=== PATIENT | female | born 1960 | race Hispanic/Latino ===

== ENCOUNTER 2024-04-17 18:26 | Emergency (ER) | payer OTHER ==
--- OUTSIDE RECORDS SUMMARY | 2024-04-17 18:29 | XMS REPORT | Continuity of Care Document ---
Author Name Unknown Address [address] [facility] [address] thconnect Address [address] [facility] [address] [place] [address] Care Team Providers Care White Lead Grinder Name Role Phone JUAN RIVERA Primary Care Physician TIANA Moulton Attending Clinician Unavail able Juan Manzano Attending Clinician JUAN RIVERA Attending Clinician Unavailab le Doctor Unassigned, [place] Attending Clinician U Jethro Cullen Attending Clinician + TY MULLINS Attending Clinician Unavailable JETHRO CANCINO Attending Clinician Unavail able Payers Payer Name Policy Type Policy Number Effective Date Expirati on Date Source Problems Condition Name Condition Details Condition Category Status Onset Date Resolution Date Last Treatment Date Treating Clinician Comments Source Encounter for surveillan ce of contracept villa, unspecifie d contracept cassandra Encounter for surveillan ce of contracept villa, unspecifie d contracept cassandra Disease Active 03-23 00:00: 00 [facility] Urinary frequency Urinary frequency Disease Active 03-22 00:00: 00 [facility] Vaginal itching Vaginal itching Disease Active 03-22 00:00: 00 [facility] Encounter for contracept cassandra management , unspecifie d type Encounter for contracept cassandra management , unspecifie d type Disease Active 2017-10 00:00: 00 [facility] Menopausal state Menopausal state Disease Active 2017-10 00:00: 00 [facility] Body aches Body aches Disease Active 2016-10 00:00: 00 [facility] Post-menop ausal Post-menop ausal Disease Active 07-11 00:00: 00 [facility] Screen for STD (sexually transmitte d disease) Screen for STD (sexually transmitte d disease) Disease Active 07-11 00:00: 00 [facility] Menopause Menopause Disease Active 07-11 00:00: 00 [facility] UTI symptoms UTI symptoms Disease Active 07-11 00:00: 00 [facility] Allergies, Adverse Reactions, Alerts Allergy Name Allergy Type Status Severity Reaction(s) Onset Date Inactive Date Treating Clinician Comments Source NO KNOWN ALLERGIE S Drug Class Active [facility] Social History Social Habit Start Date Stop Date Quantity Comments Source Alcohol intake 2021-03-23 00:00:00 2021-03-23 00:00:00 Current non-drinker of alcohol (finding) [facility] Tobacco use and exposure 2021-03-23 00:00:00 2021-03-23 00:00:00 Never used [facility] Sex Assigned At 1960 00:00:00 1960 00:00:00 [facility] Smoking Status Start Date Stop Date Source Never smoker [facility] Medications Ordered Medication Name Filled Medication Name Start Date Stop Date Current Medication? Ordering Clinician Indication Dosage Frequency Signature (SIG) Comments Components Source Nitrofurant oin&Nit. Macrocryst 100 mg capsule 03-19 00:00: 00 Yes 100mg Take 100 mg by mouth 2 (two) times daily. [facility] metroNIDAZO LE 500 mg tablet 11-25 00:00: 00 03-23 00:00 :00 No [id number] 500mg Take 1 tablet by mouth 2 (two) times daily. [facility] cyclobenzap rine 10 mg tablet 2016-10 00:00: 00 03-23 00:00 :00 No [id number] 10mg Take 1 tablet by mouth 3 (three) times daily. prn [facility] Vital Signs Vital Name Observation Time Observation Value Comments Kevin powers Systolic blood pressure 2021-03-22 21:08:00 137 mm[Hg] [facility] Diastolic blood pressure 2021-03-22 21:08:00 81 mm[Hg] [facility] Heart rate 2021-03-22 21:08:00 71 [facility] temperature 2021-03-22 21:08:00 36.28 Diana [facility] Respiratory rate 2021-03-22 21:08:00 18 /min [facility] Body height 2021-03-22 21:08:[address] [facility] Body weight 2021-03-22 21:08:[address] [facility] BMI 2021-03-22 21:08:00 24.82 kg/m2 [facility] Systolic blood pressure 2019-11-25 22:37:00 107 mm[Hg] [facility] Diastolic blood pressure 2019-11-25 22:37:00 63 mm[Hg] [facility] Heart rate 2019-11-25 22:37:00 68 /min [facility] Body temperature 2019-11-25 22:37:00 36.72 Diana [facility] Respiratory rate 2019-11-25 22:37:00 16 /min [facility] Body height 2019-11-25 22:37:[address] [facility] Body weight 2019-11-25 22:37:[address] [facility] BMI 2019-11-25 22:37:00 21.66 kg/m2 [facility] Procedures Procedure Date / Time Performed Performing Clinicia n Source ASSIGNMENT OF BENEFITS 2021-03-22 20:24:57 Rosas hernandez Unassigned, [place] [facility] CONSENT/REFUSAL FOR DIAGNOSIS AND TREATMENT 2021-03-22 20:24:26 Doctor Unassigned, [place] [facility] ASSIGNMENT OF BENEFITS 2019-11-25 21:23:09 Rosas hernandez Unassigned, [place] [facility] Encounters Start Date/Time End Date/Time Encounter Type Admission Type Attending [facility] Care Facility Care Department Encounter ID Source 2024-02-15 08:33:56 2024-02-15 08:33:56 Outpatient [facility] [id number] 2023-11-30 09:50:51 2023-11-30 09:50:51 Outpatient [facility] [id number] 2021-08-02 10:00:00 2021-08-02 10:00:00 Outpatient TIANA LANDEROS [facility] [id number] [facility] 2021-03-31 06:59:45 2021-03-31 23:59:00 Hospital Encounter Juan Rivera [facility] 1..840.114 350.1.13.10 4.2.7.2.686 [id number] [facility] 2021-03-31 06:59:45 2021-03-31 23:59:00 Outpatient JUAN MICHAELS [facility] [id number] [facility] 2021-03-25 00:00:00 2021-03-25 00:00:00 Telephone Juan Rivera [facility] [id number] 350.1.13.10 [id number] [id number] [facility] 2021-03-24 00:00:00 2021-03-24 00:00:00 Telephone Juan Rivera [facility] 1..840.114 350.1.13.10 4.2.7.2.686 [id number] [facility] 2021-03-22 15:45:00 2021-03-22 16:39:29 Outpatient JUAN MICHAELS [facility] [id number] [facility] 2021-03-22 15:43:20 2021-03-22 16:39:29 Office Visit Juan Rivera [facility] 1.2.840.114 350.1.13.10 4.2.7.2.686 [id number] [facility] 2021-03-22 15:46:10 2021-03-22 16:13:00 Office Visit Juan Rivera [facility] 1.2.840.114 350.1.13.10 4.2.7.2.686 [id number] [facility] 2021-03-22 15:45:00 2021-03-22 15:45:00 Outpatient R RIVERAJUAN [facility] [id number] [facility] 2021-03-22 00:00:00 2021-03-22 00:00:00 Orders Only Doctor Unassigned, [place] [facility] 1.2.840.114 350.1.13.10 4.2.7.2.686 [id number] [facility] 2021-03-19 00:00:00 2021-03-19 00:00:00 Telephone Jethro Cancino [facility] 1.2.840.114 350.1.13.10 [id number] [id number] [facility] 2021-02-27 08:40:00 2021-02-27 09:37:53 Outpatient TY MELENDREZ [facility] [id number] [facility] 2021-02-06 08:30:00 2021-02-06 09:19:59 Outpatient TY MELENDREZ [facility] [id number] [facility] 2020-01-29 00:00:00 2020-01-29 00:00:00 Outpatient R JETHRO CANCINO [facility] [id number] [facility] 2020-01-01 00:00:00 2020-01-01 00:00:00 Telephone Jethro Cancino [facility] [id number] 350.1.13.10 [id number] [id number] [facility] 2019-12-02 06:29:00 2019-12-02 23:59:00 Hospital Encounter Dimitri Jethro Lois [facility] 1.2.840.114 350.1.13.10 [id number] [id number] [facility] 2019-11-25 16:12:12 2019-11-25 17:34:47 Office Visit Jethro Cancino Lois [facility] [id number] 350.1.13.10 [id number] [id number] [facility] 2019-11-25 00:00:00 2019-11-25 00:00:00 Orders Only Doctor Unassigned, [place] [facility] [id number] 350.1.13.10 [id number] [id number] [facility] Results Test Description Test Time Test Comments Results Result Co mments Source COMPREHENSIVE METABOLIC [id number] 06:18:02* Test Item Value Reference Range Interpretation Comme nts GLUCOSE (test code = 2217) 100 MG/DL 70-99 H BUN (test code = 2208) 15 MG/DL 8-23 CREATININE (test code = 2214) 0.60 MG/DL 0.60-1.30 eGFR (2020 CKD-EPI) (test code = 94349) 101 ML/MIN/1.73 >60 CALC BUN/CREAT (test code = 2235) 25 RATIO 6-28 SODIUM (test code = 2231) 141 MEQ/L 133-146 POTASSIUM (test code = 2228) 4.6 MEQ/L 3.5-5.4 CHLORIDE (test code = 2215) 103 MEQ/L 95-107 CARBON DIOXIDE (test code = 2205) 26 MEQ/L 19-31 CALCIUM (test code = 220) 9.7 MG/DL 8.5-10.5 PROTEIN, TOTAL (test code = 2229) 7.0 G/DL 6.1-8.3 ALBUMIN (test code = 1) 4.6 G/DL 3.5-5.2 CALC GLOBULIN (test code = 0) 2.4 G/DL 1.9-3.7 CALC A/G RATIO (test code = 2233) 1.9 RATIO 1.0-2.6 BILIRUBIN, TOTAL (test code = 2206) 0.5 MG/DL <=1.2 ALKALINE PHOSPHATASE (test code = 2203) 98 U/L 40-140 AST (test code = 8) 25 U/L 9-40 ALT (test code = 2218) 24 U/L 5-40 UNLESS OTHERWISE INDICATED, ALL TESTING PERFORMED AT [facility] [address] [place] [address] BRINE PROCESS OPERATOR: BELINDA CARRANZA M.D. CLIA NUMBER [id number] [facility] [place]. [id number] HEMOGLOBIN [id number] 02:09:29* Test Item Value Reference Range Interpretation Comme nts HEMOGLOBIN A1c (test code = 24934) 5.6 % 4.2-5.6
[2024-04-17] MEDS ORDERED: HYDROCODONE/APAP 5/325 MG TAB ONE (18:45)
--- NOTE | 2024-04-17 20:43 | RAD REPORT ---
EXAM DESCRIPTION: JILLIAN LONDON - 04/17/2024 6:58 pm CLINICAL HISTORY: PAIN COMPARISON: No comparisons TECHNIQUE: Left hand, 3 views. FINDINGS: No fracture is identified. There is no dislocation or periosteal reaction noted. Joint alignment is maintained. No foreign body. Dorsal soft tissue swelling. IMPRESSION: Dorsal soft tissue swelling. No acute osseous abnormalities .
--- NOTE | 2024-04-17 20:43 | RAD REPORT ---
EXAM DESCRIPTION: RAD - Forearm Left - 04/17/2024 6:58 pm CLINICAL HISTORY: PAIN COMPARISON: No comparisons TECHNIQUE: Left forearm, 2 views. FINDINGS: Buckle fracture of the distal radial metaphysis, with some angulation along the dorsal cor chris. There is no dislocation or periosteal reaction noted. No foreign body or other soft tissue abnormality. IMPRESSION: Buckled distal radius fracture.
--- NOTE | 2024-04-17 20:49 | ER ---
Nurse's Notes [facility] Name: Seble Almonte Age: 63 yrs Sex: Female : 1960 Arrival Date: 04/17/2024 Time: 18:26 Bed 4 Private MD: Diagnosis: buckle fracture distal radius, left Presentation: 04/17 18:38 Chief complaint: Patient states: Fall 1 hour ago - pain to left hand/wrist. Coronavirus ld1 screen: At this time, the client does not indicate any symptoms associated with coronavirus-19. Ebola Screen: No symptoms or risks identified at this time. Initial Sepsis Screen: Does the patient meet any 2 criteria? No. Patient's initial sepsis screen is negative. Does the patient have a suspected source of infection? No. Patient's initial sepsis screen is negative. Risk Assessment: Do you want to hurt yourself or someone else? Patient reports no desire to harm self or others. Onset of symptoms was April 17, 2024. 18:38 Method Of Arrival: Ambulatory ld1 18:38 Acuity: GEORGI 4 ld1 Triage Assessment: 18:39 General: Appears in no apparent distress. uncomfortable, Behavior is calm, cooperative, ld1 appropriate for age. Pain: Complains of pain in left hand and left wrist Pain does not radiate. Pain currently is 10 out of 10 on a pain scale. Quality of pain is described as throbbing, Pain began suddenly, Is continuous. EENT: No signs and/or symptoms were reported regarding the EENT system. Neuro: Level of Consciousness is awake, alert, obeys commands, Oriented to person, place, time, situation. Cardiovascular: Capillary refill < 3 seconds Patient's skin is warm and dry. Respiratory: Airway is patent Respiratory effort is even, unlabored. GI: Abdomen is flat, non-distended. : No signs and/or symptoms were reported regarding the genitourinary system. Derm: No signs and/or symptoms reported regarding the dermatologic system. Musculoskeletal: No signs and/or symptoms reported regarding the musculoskeletal system. Historical: - Allergies: 18:39 No Known Allergies; ld1 - PMHx: 18:39 None; ld1 - PSHx: 18:39 None; ld1 - Immunization history:: Adult Immunizations up to date. - Infectious Disease History:: Denies. - Social history:: Smoking status: Patient denies any tobacco usage or history of. Screenin:49 [facility] ED Fall Risk Assessment (Adult) History of falling in the last 3 months, nj1 including since admission Yes- single mechanical fall (1 pt) Confusion or Disorientation No (0 pts) Intoxicated or Sedated No (0 pts) Impaired Gait No (0 pts) Mobility Assist Device Used No (0 pt) Altered Elimination No (0 pt) Score/Fall Risk Level 0 - 2 = Low Risk Oriented to surroundings, Maintained a safe environment, Hourly rounding (assess needs \T\ fall precautionary measures) done. Abuse screen: Denies threats or abuse. Denies injuries from another. Nutritional screening: No deficits noted. Tuberculosis screening: No symptoms or risk factors identified. Assessment: 18:48 General: Appears in no apparent distress. uncomfortable, Behavior is calm, cooperative, nj1 appropriate for age. Pain: Complains of pain in left hand and left wrist Pain currently is 10 out of 10 on a pain scale. Neuro: Level of Consciousness is awake, alert, obeys commands, Oriented to person, place, time, situation. Cardiovascular: Patient's skin is warm and dry. Respiratory: Airway is patent Respiratory effort is even, unlabored. Derm: Bruising that is on left hand. Musculoskeletal: Swelling present in left hand. 19:16 Reassessment: Patient appears in no apparent distress at this time. Patient and/or jb4 family updated on plan of care and expected duration. Pain level reassessed. Patient is alert, oriented x 3, equal unlabored respirations, skin warm/dry/pink. Pt reports pain is starting to improve. 20:26 Reassessment: Patient appears in no apparent distress at this time. Patient and/or jb4 family updated on plan of care and expected duration. Pain level reassessed. Patient is alert, oriented x 3, equal unlabored respirations, skin warm/dry/pink. Patient states feeling better. Vital Signs: 18:38 BP 153 / 61; Pulse 69; Resp 18; Temp 97.9(TE); Pulse Ox 99% on R/A; Weight 54.43 kg; ld1 Height 5 ft. 1 in. ; Pain 10/10; 19:17 BP 118 / 71; Pulse 71; Resp 16; Pulse Ox 98% on R/A; jb4 20:26 BP 116 / 69; Pulse 63; Resp 16; Pulse Ox 100% on R/A; jb4 18:38 Body Mass Index 22.67 (54.43 kg, 154.94 cm) ld1 18:38 Pain Scale: Adult ld1 ED Course: 18:29 Patient arrived in ED. ra3 18:31 Christelle Isbell FNP-C [facility] kb 18:31 Radha Bonner MD is Attending Physician. kb 18:39 Triage completed. ld1 18:39 Arm band placed on right wrist. ld1 18:42 Belen Goodman, RN is Primary Nurse. nj1 18:49 Patient has correct armband on for positive identification. Bed in low position. Call nj1 light in reach. Adult w/ patient. Provided Education on: call light, fall precautions. 19:00 Forearm Left XRAY In Process Unspecified. EDMS 19:00 Hand Left 3 View XRAY In Process Unspecified. EDMS 21:23 No provider procedures requiring assistance completed. Patient did not have IV access jb4 during this emergency room visit. 21:24 Orthoglass splint: Sugar tong splint applied on left arm. jb4 Administered Medications: 18:48 Drug: HYDROcodone-acetaminophen PO 5 mg-325 mg 1 tabs PO once Route: PO; nj1 19:15 Follow up: Response: No adverse reaction; Marked relief of symptoms; Pain is decreased; jb4 RASS: Alert and Calm (0) 21:22 Drug: Ketorolac IM 30 mg IM once Route: IM; Site: right deltoid; jb4 21:22 Follow up: Response: Medication administered at discharge. jb4 Medication: 21:24 VIS not applicable for this client. jb4 Outcome: 20:48 Discharge ordered by . kb 21:23 Discharged to home ambulatory, jb4 21:23 Condition: stable 21:23 Discharge instructions given to patient, family, Instructed on discharge instructions, follow up and referral plans. medication usage, Demonstrated understanding of instructions, follow-up care, medications, Prescriptions given X 1, 21:24 Patient left the ED. jb4 Signatures: Dispatcher [employer] EDMS Christelle Isbell FNP-C FNP-Ckb Bryson, James, RN RN jb4 Isadora Felton RN RN ld1 Belen Goodman, RN RN nj1 Perez, Michelle ra3
--- NOTE | 2024-04-17 20:49 | EDPHYS ---
Physician Documentation [facility] Name: Seble Almonte Age: 63 yrs Sex: Female : 1960 Arrival Date: 04/17/2024 Time: 18:26 Bed 4 Private MD: ED Physician Radha Bonner HPI: 04/17 22:16 This 63 yrs old Female presents to ER via Ambulatory with complaints of Fall kb Injury, Arm Pain, Hand Injury. 22:16 Pt is a 63 year old female who slipped and fell outside on the wet ground and landed on kb left hand. Reports pain to left hand and wrist. Denies any other injury. Ambulates with steady gait. Historical: - Allergies: 18:39 No Known Allergies; ld1 - PMHx: 18:39 None; ld1 - PSHx: 18:39 None; ld1 - Immunization history:: Adult Immunizations up to date. - Infectious Disease History:: Denies. - Social history:: Smoking status: Patient denies any tobacco usage or history of. ROS: 22:15 Constitutional: As per HPI kb Exam: 22:15 Constitutional: This is a well developed, well nourished patient who is awake, alert, kb and in no acute distress. Head/Face: Normocephalic, atraumatic. ENT: Moist Mucous membranes Cardiovascular: Regular rate Respiratory: Respirations even and unlabored. No increased work of breathing. Talking in full sentences Abdomen/GI: Soft, non-tender. No distention Skin: Warm, dry with normal turgor. Normal color. Neuro: Awake and alert, GCS 15, oriented to person, place, time, and situation. Moves all extremities. Normal gait. 22:15 Musculoskeletal/extremity: Extremities: grossly normal except: noted in the left hand and left wrist: contusion, decreased ROM, pain, swelling, tenderness, ROM: limited active range of motion due to pain, in the left wrist, Circulation is intact in all extremities. Sensation intact. Vital Signs: 18:38 BP 153 / 61; Pulse 69; Resp 18; Temp 97.9(TE); Pulse Ox 99% on R/A; Weight 54.43 kg; ld1 Height 5 ft. 1 in. ; Pain 10/10; 19:17 BP 118 / 71; Pulse 71; Resp 16; Pulse Ox 98% on R/A; jb4 20:26 BP 116 / 69; Pulse 63; Resp 16; Pulse Ox 100% on R/A; jb4 18:38 Body Mass Index 22.67 (54.43 kg, 154.94 cm) ld1 18:38 Pain Scale: Adult ld1 MDM: 18:31 Patient medically screened. kb 20:20 Data reviewed: vital signs, nurses notes. Independent interpretation of the following kb test(s) in the Emergency Department X-Ray: My interpretation is buckle fracture left radius. 22:16 Differential diagnosis: contusion, fracture, sprain. Historians other than the Patient: kb Family Member: son. Counseling: I had a detailed discussion with the patient and/or guardian regarding the historical points, exam findings, and any diagnostic results supporting the discharge/admit diagnosis, radiology results, the need for outpatient follow up, a orthopedic surgeon, to return to the emergency department if symptoms worsen or persist or if there are any questions or concerns that arise at home. 04/17 18:37 Order name: Forearm Left XRAY; Complete Time: 20:48 kb 04/17 18:37 Order name: Hand Left 3 View XRAY; Complete Time: 20:48 kb 04/17 20:49 Order name: Sling; Complete Time: 21:22 kb 04/17 20:49 Order name: Sugar Tong Forearm Splint; Complete Time: 20:52 kb Administered Medications: 18:48 Drug: HYDROcodone-acetaminophen PO 5 mg-325 mg 1 tabs PO once Route: PO; nj1 19:15 Follow up: Response: No adverse reaction; Marked relief of symptoms; Pain is decreased; jb4 RASS: Alert and Calm (0) 21:22 Drug: Ketorolac IM 30 mg IM once Route: IM; Site: right deltoid; jb4 21:22 Follow up: Response: Medication administered at discharge. jb4 Disposition Summary: 04/17/24 20:48 Discharge Ordered Notes: Location: Home kb Condition: Stable kb Diagnosis - buckle fracture distal radius, left kb Followup: kb - With: Emergency Department - When: As needed - Reason: Worsening of condition Followup: kb - With: Private Physician - When: 2 - 3 days - Reason: Recheck today's complaints, Continuance of care, Re-evaluation by your physician Discharge Instructions: - Discharge Summary Sheet kb - Radial Fracture kb Forms: - Medication Reconciliation Form kb - Antibiotic Education kb - Prescription Opioid Use kb - Patient Portal Instructions kb - Leadership Thank You Letter kb Prescriptions: - Diclofenac Sodium 75 mg Oral tablet, delayed release (enteric coated) - take 1 tablet ORAL route 2 times per day As needed; 30 tablet; Refills: 0, kb Product Selection Permitted Signatures: Dispatcher [employer] EDMS Christelle sIbell, Rajendra Lo RN RN jb4 Isadora Felton RN RN ld1 Belen Goodman RN RN nj1 Corrections: (The following items were deleted from the chart) 18:37 18:37 Hand Left 3 View+RAD.RAD.BRZ ordered. [facility]
[2024-04-17] MEDS ORDERED: KETOROLAC 30 MG/ML INJ ONE (21:08)
[2024-04-17 21:37] VITALS: BP 116/69; TEMP 97.9; O2SAT 100
== END 2024-04-17 21:24 | disposition home or self-care (01) ==
LOC: ER 18:26
PROC: 2W3DX1Z Immobilization of Left Lower Arm using Splint (ICD-10-PCS; principal; 2024-04-17)
DX: S52.522A Torus fracture of lower end of left radius, initial encounter for closed fracture (principal)